=== PATIENT | male | born 1985 | race Caucasian/White ===

== ENCOUNTER 2021-05-11 15:04 | Inpatient (IN) | payer SELFPAY ==
[2021-05-11] MEDS ORDERED: Amitriptyline HCl 25 MG TAB PO PRN (17:27)
[2021-05-11] MEDS ORDERED: Zolpidem Tartrate 5 MG TAB PO PRN (17:27)
[2021-05-11] MEDS ORDERED: Dextrose 50% Abboject 50 ML SYRINGE SLOW IVP PRN (17:31)
[2021-05-11] MEDS ORDERED: metFORMIN 500 MG TAB PO SCH (18:00)
[2021-05-11] MEDS: Gabapentin 300 MG CAP PO SCH (21:21)
[2021-05-12] MEDS: Pioglitazone HCl 15 MG TAB PO SCH (08:33)
[2021-05-12] MEDS: Lisinopril 20 MG TAB PO SCH (08:34)
[2021-05-12] MEDS: Aspirin 81 mg Enteric Coated Tablet PO SCH (08:34)
[2021-05-12] MEDS: metFORMIN 500 MG TAB PO SCH ×2 (08:35→17:37)
[2021-05-12] MEDS: Gabapentin 300 MG CAP PO SCH ×3 (08:35→22:33)
[2021-05-12] MEDS: Triple Antibiotic Oint 1 GM Packet TOP SCH (14:15)
[2021-05-12] MEDS: Acetaminophen/Codeine 30-300mg Tablet PO PRN ×2 (14:45→22:30)
[2021-05-12] MEDS ORDERED: Diphenoxylate HCl/Atropine Tablet PO PRN (17:23)
[2021-05-13] MEDS: Pioglitazone HCl 15 MG TAB PO SCH (08:34)
[2021-05-13] MEDS: Aspirin 81 mg Enteric Coated Tablet PO SCH (08:35)
[2021-05-13] MEDS: Gabapentin 300 MG CAP PO SCH ×3 (08:35→20:44)
[2021-05-13] MEDS: metFORMIN 500 MG TAB PO SCH ×2 (08:35→17:40)
[2021-05-13] MEDS: Triple Antibiotic Oint 1 GM Packet TOP SCH ×2 (08:37→08:53)
[2021-05-13] MEDS: Lisinopril 20 MG TAB PO SCH (08:49)
[2021-05-13] MEDS: traMADol HCl 50 MG TAB PO PRN (08:52)
[2021-05-13] MEDS: Acetaminophen/Codeine 30-300mg Tablet PO PRN ×2 (15:50→20:45)
[2021-05-14] MEDS: Pioglitazone HCl 15 MG TAB PO SCH (08:25)
[2021-05-14] MEDS: Aspirin 81 mg Enteric Coated Tablet PO SCH (08:25)
[2021-05-14] MEDS: Gabapentin 300 MG CAP PO SCH ×3 (08:25→20:35)
[2021-05-14] MEDS: metFORMIN 500 MG TAB PO SCH ×2 (08:25→16:55)
[2021-05-14] MEDS: Lisinopril 20 MG TAB PO SCH (08:26)
[2021-05-14] MEDS: Acetaminophen/Codeine 30-300mg Tablet PO PRN ×3 (08:27→19:38)
[2021-05-14] MEDS: Triple Antibiotic Oint 1 GM Packet TOP SCH ×2 (08:27→13:00)
[2021-05-15] MEDS: metFORMIN 500 MG TAB PO SCH ×2 (07:57→17:26)
[2021-05-15] MEDS: Pioglitazone HCl 15 MG TAB PO SCH (07:57)
[2021-05-15] MEDS: Lisinopril 20 MG TAB PO SCH (08:42)
[2021-05-15] MEDS: Aspirin 81 mg Enteric Coated Tablet PO SCH (08:42)
[2021-05-15] MEDS: Gabapentin 300 MG CAP PO SCH ×3 (08:42→20:09)
[2021-05-15] MEDS: Triple Antibiotic Oint 1 GM Packet TOP SCH ×2 (08:43)
[2021-05-15] MEDS: traMADol HCl 50 MG TAB PO PRN (09:58)
[2021-05-15 12:40] LABS: SARS-CoV-2 PCR by NAA Not Detected (NotDetected)
[2021-05-15] MEDS: tiZANidine HCl 4 MG TAB PO SCH (20:09)
[2021-05-16 05:08] LABS: #Basophils 0.1 thou/uL (0.0-0.2); #Eosinphils 0.3 thou/uL (0.0-0.7); #Monocytes 0.6 thou/uL (0.11-0.59); %Basophils 1.1 % (0.0-1.0); %Lymphocytes 43.6 % (21.0-51.0); %Neutrophils 43.3 % (42.0-75.0); Hemoglobin 8.8 g/dL (14.0-18.0); Mean Corpuscular HGB CONC 31.2 g/dL (32.0-36.0); Mean Corpuscular Hemoglobin 27.7 pg (27.0-31.0); Mean Corpuscular Volume 88.7 fL (78.0-98.0); Mean Platelet Volume 6.4 fL (7.4-10.4); Platelet Count 239 thou/uL (130-400); RBC Distribution Width 16.5 % (11.5-14.5); Red Blood Cell (RBC) Count 3.18 mill/uL (4.70-6.10); White Blood Cell (WBC) Count 6.9 thou/uL (4.8-10.8)
[2021-05-16] MEDS: Pioglitazone HCl 15 MG TAB PO SCH (08:20)
[2021-05-16] MEDS: Lisinopril 20 MG TAB PO SCH (08:21)
[2021-05-16] MEDS: Aspirin 81 mg Enteric Coated Tablet PO SCH (08:21)
[2021-05-16] MEDS: tiZANidine HCl 4 MG TAB PO SCH ×2 (08:21→21:38)
[2021-05-16] MEDS: Triple Antibiotic Oint 1 GM Packet TOP SCH ×2 (08:22)
[2021-05-16] MEDS: Gabapentin 300 MG CAP PO SCH ×3 (08:22→21:37)
[2021-05-16] MEDS: metFORMIN 500 MG TAB PO SCH ×2 (08:22→17:52)
[2021-05-16] MEDS: traMADol HCl 50 MG TAB PO PRN (12:21)
[2021-05-17] MEDS: Pioglitazone HCl 15 MG TAB PO SCH (08:44)
[2021-05-17] MEDS: metFORMIN 500 MG TAB PO SCH ×2 (08:44→16:56)
[2021-05-17] MEDS: Aspirin 81 mg Enteric Coated Tablet PO SCH (08:44)
[2021-05-17] MEDS: Gabapentin 300 MG CAP PO SCH ×3 (08:46→21:17)
[2021-05-17] MEDS: Lisinopril 20 MG TAB PO SCH (08:46)
[2021-05-17] MEDS: tiZANidine HCl 4 MG TAB PO SCH ×2 (08:46→21:19)
[2021-05-17] MEDS: Triple Antibiotic Oint 1 GM Packet TOP SCH ×2 (08:47)
[2021-05-17] MEDS: traMADol HCl 50 MG TAB PO PRN (14:37)
[2021-05-18] MEDS: tiZANidine HCl 4 MG TAB PO SCH ×2 (08:18→20:12)
[2021-05-18] MEDS: metFORMIN 500 MG TAB PO SCH ×2 (08:18→17:16)
[2021-05-18] MEDS: Pioglitazone HCl 15 MG TAB PO SCH (08:19)
[2021-05-18] MEDS: Gabapentin 300 MG CAP PO SCH ×3 (08:19→20:11)
[2021-05-18] MEDS: Aspirin 81 mg Enteric Coated Tablet PO SCH (08:19)
[2021-05-18] MEDS: Lisinopril 20 MG TAB PO SCH (08:19)
[2021-05-18] MEDS: Triple Antibiotic Oint 1 GM Packet TOP SCH ×2 (08:20)
[2021-05-18] MEDS: Acetaminophen/Codeine 30-300mg Tablet PO PRN ×2 (14:49→20:08)
[2021-05-19] MEDS: metFORMIN 500 MG TAB PO SCH ×2 (08:43→17:35)
[2021-05-19] MEDS: Pioglitazone HCl 15 MG TAB PO SCH (08:43)
[2021-05-19] MEDS: Lisinopril 20 MG TAB PO SCH (08:43)
[2021-05-19] MEDS: Aspirin 81 mg Enteric Coated Tablet PO SCH (08:43)
[2021-05-19] MEDS: Gabapentin 300 MG CAP PO SCH ×3 (08:44→21:17)
[2021-05-19] MEDS: tiZANidine HCl 4 MG TAB PO SCH ×2 (08:44→21:17)
[2021-05-19] MEDS: HumaLOG 300 UNITS/3 ML VIAL SC PRN (12:10)
[2021-05-19] MEDS: Triple Antibiotic Oint 1 GM Packet TOP SCH ×2 (12:11)
[2021-05-20] MEDS: Gabapentin 300 MG CAP PO SCH ×4 (08:37→20:43)
[2021-05-20] MEDS: metFORMIN 500 MG TAB PO SCH ×2 (08:37→17:23)
[2021-05-20] MEDS: Pioglitazone HCl 15 MG TAB PO SCH (08:37)
[2021-05-20] MEDS: Lisinopril 20 MG TAB PO SCH (08:38)
[2021-05-20] MEDS: tiZANidine HCl 4 MG TAB PO SCH ×2 (08:38→20:43)
[2021-05-20] MEDS: Aspirin 81 mg Enteric Coated Tablet PO SCH (08:38)
[2021-05-20] MEDS: Triple Antibiotic Oint 1 GM Packet TOP SCH ×2 (08:39→10:10)
[2021-05-20] MEDS: Acetaminophen/Codeine 30-300mg Tablet PO PRN (19:24)
[2021-05-21] MEDS: Triple Antibiotic Oint 1 GM Packet TOP SCH ×3 (01:29→20:35)
[2021-05-21] MEDS: Pioglitazone HCl 15 MG TAB PO SCH (09:02)
[2021-05-21] MEDS: Lisinopril 20 MG TAB PO SCH (09:03)
[2021-05-21] MEDS: Gabapentin 300 MG CAP PO SCH ×3 (09:03→20:35)
[2021-05-21] MEDS: metFORMIN 500 MG TAB PO SCH ×2 (09:03→17:00)
[2021-05-21] MEDS: Aspirin 81 mg Enteric Coated Tablet PO SCH (09:03)
[2021-05-21] MEDS: tiZANidine HCl 4 MG TAB PO SCH ×2 (09:04→20:36)
[2021-05-21] MEDS: Acetaminophen/Codeine 30-300mg Tablet PO PRN (10:07)
[2021-05-21] MEDS ORDERED: Fluticasone Propionate Nasal Spray 16 gm Bottle NASAL SCH (10:15)
[2021-05-21] MEDS: HumaLOG 300 UNITS/3 ML VIAL SC PRN (12:16)
[2021-05-21 22:32] LABS: SARS-CoV-2 PCR by NAA Not Detected (NotDetected)
[2021-05-22] MEDS: Lisinopril 20 MG TAB PO SCH (08:54)
[2021-05-22] MEDS: metFORMIN 500 MG TAB PO SCH ×2 (08:54→16:56)
[2021-05-22] MEDS: tiZANidine HCl 4 MG TAB PO SCH ×2 (08:54→21:17)
[2021-05-22] MEDS: Pioglitazone HCl 15 MG TAB PO SCH (08:54)
[2021-05-22] MEDS: Aspirin 81 mg Enteric Coated Tablet PO SCH (08:54)
[2021-05-22] MEDS: Gabapentin 300 MG CAP PO SCH ×3 (08:55→21:16)
[2021-05-22] MEDS: Fluticasone Propionate Nasal Spray 16 gm Bottle NASAL SCH (08:55)
[2021-05-22] MEDS: Triple Antibiotic Oint 1 GM Packet TOP SCH (21:17)
[2021-05-23] MEDS: traMADol HCl 50 MG TAB PO PRN (04:58)
[2021-05-23] MEDS: Fluticasone Propionate Nasal Spray 16 gm Bottle NASAL SCH ×2 (08:35→17:33)
[2021-05-23] MEDS: metFORMIN 500 MG TAB PO SCH ×2 (08:36→17:33)
[2021-05-23] MEDS: Pioglitazone HCl 15 MG TAB PO SCH (08:36)
[2021-05-23] MEDS: Aspirin 81 mg Enteric Coated Tablet PO SCH (08:36)
[2021-05-23] MEDS: Gabapentin 300 MG CAP PO SCH ×3 (08:36→20:11)
[2021-05-23] MEDS: tiZANidine HCl 4 MG TAB PO SCH ×2 (08:37→20:11)
[2021-05-23] MEDS: Lisinopril 20 MG TAB PO SCH (08:40)
[2021-05-23] MEDS: Triple Antibiotic Oint 1 GM Packet TOP SCH (20:11)
[2021-05-24] MEDS: Acetaminophen/Codeine 30-300mg Tablet PO PRN (05:11)
[2021-05-24] MEDS: Aspirin 81 mg Enteric Coated Tablet PO SCH (09:10)
[2021-05-24] MEDS: Pioglitazone HCl 15 MG TAB PO SCH (09:10)
[2021-05-24] MEDS: Gabapentin 300 MG CAP PO SCH ×3 (09:10→21:20)
[2021-05-24] MEDS: Fluticasone Propionate Nasal Spray 16 gm Bottle NASAL SCH (09:10)
[2021-05-24] MEDS: metFORMIN 500 MG TAB PO SCH ×2 (09:11→17:14)
[2021-05-24] MEDS: Lisinopril 20 MG TAB PO SCH (09:11)
[2021-05-24] MEDS: tiZANidine HCl 4 MG TAB PO SCH ×2 (09:12→21:20)
[2021-05-24] MEDS: traMADol HCl 50 MG TAB PO PRN (09:12)
[2021-05-24] MEDS: Triple Antibiotic Oint 1 GM Packet TOP SCH (21:24)
[2021-05-25] MEDS: Gabapentin 300 MG CAP PO SCH ×3 (08:45→20:33)
[2021-05-25] MEDS: Lisinopril 20 MG TAB PO SCH (08:45)
[2021-05-25] MEDS: Pioglitazone HCl 15 MG TAB PO SCH (08:45)
[2021-05-25] MEDS: Aspirin 81 mg Enteric Coated Tablet PO SCH (08:45)
[2021-05-25] MEDS: metFORMIN 500 MG TAB PO SCH ×2 (08:45→17:16)
[2021-05-25] MEDS: Fluticasone Propionate Nasal Spray 16 gm Bottle NASAL SCH (08:46)
[2021-05-25] MEDS: tiZANidine HCl 4 MG TAB PO SCH ×2 (08:46→20:33)
[2021-05-25] MEDS: Acetaminophen/Codeine 30-300mg Tablet PO PRN ×2 (13:52→22:39)
[2021-05-25] MEDS: Triple Antibiotic Oint 1 GM Packet TOP SCH (20:33)
[2021-05-26] MEDS: Pioglitazone HCl 15 MG TAB PO SCH (09:08)
[2021-05-26] MEDS: Aspirin 81 mg Enteric Coated Tablet PO SCH (09:08)
[2021-05-26] MEDS: Lisinopril 20 MG TAB PO SCH (09:08)
[2021-05-26] MEDS: metFORMIN 500 MG TAB PO SCH ×2 (09:09→16:47)
[2021-05-26] MEDS: tiZANidine HCl 4 MG TAB PO SCH ×2 (09:09→21:06)
[2021-05-26] MEDS: Fluticasone Propionate Nasal Spray 16 gm Bottle NASAL SCH (09:09)
[2021-05-26] MEDS: Gabapentin 300 MG CAP PO SCH ×3 (09:09→21:02)
[2021-05-26] MEDS: Acetaminophen/Codeine 30-300mg Tablet PO PRN ×2 (09:38→21:04)
[2021-05-26] MEDS: HumaLOG 300 UNITS/3 ML VIAL SC PRN (12:26)
[2021-05-26] MEDS: Triple Antibiotic Oint 1 GM Packet TOP SCH (16:47)
[2021-05-27] MEDS: Lisinopril 20 MG TAB PO SCH (09:11)
[2021-05-27] MEDS: tiZANidine HCl 4 MG TAB PO SCH ×2 (09:11→20:22)
[2021-05-27] MEDS: Aspirin 81 mg Enteric Coated Tablet PO SCH (09:11)
[2021-05-27] MEDS: Pioglitazone HCl 15 MG TAB PO SCH (09:11)
[2021-05-27] MEDS: metFORMIN 500 MG TAB PO SCH ×2 (09:11→17:26)
[2021-05-27] MEDS: Fluticasone Propionate Nasal Spray 16 gm Bottle NASAL SCH (09:12)
[2021-05-27] MEDS: Gabapentin 300 MG CAP PO SCH ×3 (09:12→20:21)
[2021-05-27] MEDS: HumaLOG 300 UNITS/3 ML VIAL SC PRN (11:55)
[2021-05-27] MEDS: Acetaminophen/Codeine 30-300mg Tablet PO PRN (20:20)
[2021-05-27] MEDS: Triple Antibiotic Oint 1 GM Packet TOP SCH ×2 (20:22→23:14)
[2021-05-28] MEDS: Triple Antibiotic Oint 1 GM Packet TOP SCH ×2 (00:36→20:52)
[2021-05-28] MEDS: Fluticasone Propionate Nasal Spray 16 gm Bottle NASAL SCH (08:32)
[2021-05-28] MEDS: metFORMIN 500 MG TAB PO SCH ×2 (08:33→16:53)
[2021-05-28] MEDS: Gabapentin 300 MG CAP PO SCH ×3 (08:33→20:54)
[2021-05-28] MEDS: Aspirin 81 mg Enteric Coated Tablet PO SCH (08:33)
[2021-05-28] MEDS: Lisinopril 20 MG TAB PO SCH (08:33)
[2021-05-28] MEDS: tiZANidine HCl 4 MG TAB PO SCH ×2 (08:33→20:54)
[2021-05-28] MEDS: traMADol HCl 50 MG TAB PO PRN ×2 (08:35→16:52)
[2021-05-28] MEDS: Pioglitazone HCl 15 MG TAB PO SCH (08:36)
[2021-05-28 09:09] VITALS: BMI 42.3
[2021-05-29] MEDS: Pioglitazone HCl 15 MG TAB PO SCH (08:41)
[2021-05-29] MEDS: tiZANidine HCl 4 MG TAB PO SCH ×2 (08:41→20:16)
[2021-05-29] MEDS: Aspirin 81 mg Enteric Coated Tablet PO SCH (08:41)
[2021-05-29] MEDS: Fluticasone Propionate Nasal Spray 16 gm Bottle NASAL SCH (08:41)
[2021-05-29] MEDS: metFORMIN 500 MG TAB PO SCH ×2 (08:41→17:22)
[2021-05-29] MEDS: Acetaminophen/Codeine 30-300mg Tablet PO PRN (08:42)
[2021-05-29] MEDS: Lisinopril 20 MG TAB PO SCH (08:42)
[2021-05-29] MEDS: Gabapentin 300 MG CAP PO SCH ×3 (08:43→20:15)
[2021-05-29 16:19] LABS: SARS-CoV-2 PCR by NAA Not Detected (NotDetected)
[2021-05-29] MEDS: Triple Antibiotic Oint 1 GM Packet TOP SCH (20:16)
[2021-05-30] MEDS: Acetaminophen/Codeine 30-300mg Tablet PO PRN ×2 (00:36→21:07)
[2021-05-30] MEDS: metFORMIN 500 MG TAB PO SCH ×3 (09:53→17:37)
[2021-05-30] MEDS: Pioglitazone HCl 15 MG TAB PO SCH ×2 (09:53→10:29)
[2021-05-30] MEDS: Fluticasone Propionate Nasal Spray 16 gm Bottle NASAL SCH (10:29)
[2021-05-30] MEDS: Gabapentin 300 MG CAP PO SCH ×4 (10:30→21:09)
[2021-05-30] MEDS: Lisinopril 20 MG TAB PO SCH (10:30)
[2021-05-30] MEDS: Aspirin 81 mg Enteric Coated Tablet PO SCH (10:31)
[2021-05-30] MEDS: tiZANidine HCl 4 MG TAB PO SCH ×2 (10:31→21:09)
[2021-05-30 10:48] LABS: Hemoglobin 11.9 g/dL (14.0-18.0); Platelet Count 278 thou/uL (130-400)
[2021-05-30] MEDS: Triple Antibiotic Oint 1 GM Packet TOP SCH (21:10)
[2021-05-31] MEDS: Aspirin 81 mg Enteric Coated Tablet PO SCH (08:09)
[2021-05-31] MEDS: Pioglitazone HCl 15 MG TAB PO SCH (08:09)
[2021-05-31] MEDS: Gabapentin 300 MG CAP PO SCH ×3 (08:10→20:49)
[2021-05-31] MEDS: tiZANidine HCl 4 MG TAB PO SCH ×2 (08:10→20:50)
[2021-05-31] MEDS: Lisinopril 20 MG TAB PO SCH (08:10)
[2021-05-31] MEDS: metFORMIN 500 MG TAB PO SCH ×2 (08:10→17:45)
[2021-05-31] MEDS: Fluticasone Propionate Nasal Spray 16 gm Bottle NASAL SCH (08:12)
[2021-05-31] MEDS: Acetaminophen/Codeine 30-300mg Tablet PO PRN ×2 (15:18→21:15)
[2021-05-31] MEDS: Triple Antibiotic Oint 1 GM Packet TOP SCH (20:50)
[2021-06-01] MEDS: Gabapentin 300 MG CAP PO SCH (08:46)
[2021-06-01] MEDS: metFORMIN 500 MG TAB PO SCH (08:47)
[2021-06-01] MEDS: Aspirin 81 mg Enteric Coated Tablet PO SCH (08:48)
[2021-06-01] MEDS: Pioglitazone HCl 15 MG TAB PO SCH (08:48)
[2021-06-01] MEDS: Lisinopril 20 MG TAB PO SCH (08:48)
[2021-06-01] MEDS: tiZANidine HCl 4 MG TAB PO SCH (08:49)
[2021-06-01] MEDS: Fluticasone Propionate Nasal Spray 16 gm Bottle NASAL SCH (08:51)
[2021-06-01 12:08] VITALS: BP 159/78; TEMP 97.4
== END 2021-06-01 12:50 | disposition home or self-care (01) | DRG 560 ==
LOC: MADMS 15:04
PROVIDERS: ADMIT Family Medicine; ATTEND Family Medicine
DX: Z47.81 Encounter for orthopedic aftercare following surgical amputation (principal); D62 Acute posthemorrhagic anemia; Z68.41 Body mass index [BMI] 40.0-44.9, adult; M86.9 Osteomyelitis, unspecified; R26.81 Unsteadiness on feet; E11.69 Type 2 diabetes mellitus with other specified complication; E11.42 Type 2 diabetes mellitus with diabetic polyneuropathy; Z20.822 Contact with and (suspected) exposure to COVID-19; I10 Essential (primary) hypertension; E66.01 Morbid (severe) obesity due to excess calories; R09.81 Nasal congestion; Z89.512 Acquired absence of left leg below knee; Z89.511 Acquired absence of right leg below knee; Z79.4 Long term (current) use of insulin; Z88.8 Allergy status to other drugs, medicaments and biological substances; Z79.82 Long term (current) use of aspirin; Z79.899 Other long term (current) drug therapy
CPT/HCPCS: 36415; 36416; 85014; 85018; 85025; 85049; J1815; U0003; U0005